=== PATIENT | male | born 1940 | race Caucasian/White ===

== ENCOUNTER 2017-02-21 16:38 | Emergency (ER) | payer MEDICARE ==
[~2017-02-21] VITALS: Ht 185.4 cm; Wt 100.0 kg
[~2017-02-21 16:38] MED LIST changes: -CIPR-9 PO; -DICY10 PO; -METR-1 PO; -NORC5TAB PO
[2017-02-21 16:41] VITALS: BP 136/60; PULSE 90; RESP 16; TEMP 98.3; O2SAT 97
--- NOTE | 2017-02-21 16:57 | PD ---
HPI Chief Complaint: GI Complaint Time Seen by Provider: 16:48 Travel History International Travel<30 days: No Contact w/Intl Traveler<30days: No Traveled to known affect area: No History of Present Illness HPI The patient is a 76-year-old male who presents to the emergency department for abdominal pain and diarrhea. The patient states his symptoms started on Thursday, February 16, 2017. The patient states he has intermittent abdominal distention and pain which is diffuse, followed by diarrhea. The patient describes the diarrhea as loose, watery, without any visible blood. He does note decreased appetite secondary to persistent diarrhea with one episode of nausea. The patient denies any current vomiting. He denies any fever, chills, or sweats. The patient was evaluated by his primary physician's [employer] on an outpatient basis and had lab work and a CT of the abdomen and pelvis that were performed today. The blood work was mostly unremarkable, however, the CT of the abdomen and pelvis did reveal enteritis. The patient was referred to the emergency department for further evaluation and management. The patient denies any travel outside the [facility]. He denies drinking well water or drinking [place]. He does have a history of previous symptoms and grew out a "cousin of Escherichia coli ". The patient was seen by the wheel press operator, Dr. Giles at that time. The patient denies any history of clostridium difficile. He denies any recent hospital admissions or recurrent antibiotic use. PFSH Past Medical History Asthma: No Autoimmune Disease: No Blood Disorders: No Cancer: No Cardiovascular Problems: No COPD: No Diabetes: No Diminished Hearing: No Endocrine: No Gastrointestinal Disorders: Yes (HAD A BACTERIAL INFECTION IN ABDOMEN) Genitourinary: No Hepatitis: No Hiatal Hernia: Yes Hypertension: No Musculoskeletal: No Neurologic: No Psychiatric: No Respiratory: No Immunizations Current: Yes Thyroid Disease: No Past Surgical History Endocrine Surgery: Yes (sinuatomy) Oral Surgery: Yes (FX JAW REPAIR WITH TITANIUM) Pacemaker: No Other Surgery: Yes Social History Alcohol Use: Yes (OCC BEER) Tobacco Use: No Substance Use: No Allergies-Medications (Allergen,Severity, Reaction): Coded Allergies: Iodinated Contrast- Oral and IV Dye (Verified Allergy, Severe, Anaphylaxis , 02/21/17) adhesive (Verified Allergy, Severe, 02/21/17) PT DENIES ALLERGY Reported Meds & Prescriptions Reported Meds & Active Scripts Active Bentyl (Dicyclomine HCl) 10 Mg Cap 10 Mg PO QID [place] (Hydrocodone-Acetaminophen) 5 Mg-325 Mg Tab 1 Tab PO Q6H PRN Cipro (Ciprofloxacin HCl) 500 Mg Tab 500 Mg PO BID 7 Days Flagyl (Metronidazole) 500 Mg Tab 500 Mg PO BID 7 Days Keflex (Cephalexin Monohydrate) 500 Mg Cap 500 Mg PO QID 7 Days Reported Zantac 75 (Ranitidine HCl) Tab 75 Mg PO DIRECTED Review of Systems Except as stated in HPI: all other systems reviewed are Neg General / Constitutional: No: Fever, Chills HENT: No: Lightheadedness Respiratory: No: Shortness of Breath Gastrointestinal: Positive: Nausea, Diarrhea, Abdominal Pain, Changes in Bowel Habits, Loss of Appetite, No: Vomiting Genitourinary: No: Decreased Urinary Output Musculoskeletal: No: Myalgias, Arthralgias Skin: Positive Other (history of vitiligo), No Rash Physical Exam Narrative GENERAL: Awake, alert, pleasant 76-year-old male who appears his stated age is in no acute respiratory distress. SKIN: Focused skin assessment warm/dry. HEAD: Atraumatic. Normocephalic. EYES: Pupils equal and round. No scleral icterus. No injection or drainage. ENT: No nasal bleeding or discharge. Slightly dry mucous membranes. NECK: Trachea midline. No JVD. CARDIOVASCULAR: Regular rate and rhythm. No murmur appreciated. Heart rate in the 80s. RESPIRATORY: No accessory muscle use. Clear to auscultation. Breath sounds equal bilaterally. GASTROINTESTINAL: Abdomen soft, mild distention, tenderness epigastric right lower quadrant. No guarding or rigidity. MUSCULOSKELETAL: No obvious deformities. No clubbing. No cyanosis. No edema. NEUROLOGICAL: Awake and alert. No obvious cranial nerve deficits. Motor grossly within normal limits. Normal speech. PSYCHIATRIC: Appropriate mood and affect; insight and judgment normal. Data Data Last Documented VS Vital Signs Date Time Temp Pulse Resp B/P (MAP) Pulse Ox O2 Delivery O2 Flow Rate FiO2 02/21/17 16:41 98.3 90 16 136/60 (85) 97 Orders Orders Iv Access Insert/Monitor (02/21/17 17:10) Ecg Monitoring (02/21/17 17:10) Oximetry (02/21/17 17:10) Morphine Inj (Morphine Inj) (02/21/17 17:15) Ondansetron Inj (Zofran Inj) (02/21/17 17:15) Ciprofloxacin 400 Mg Premix (Cipro 400 M (02/21/17 17:15) Metronidazole 500 Mg Inj (Flagyl 500 Mg (02/21/17 17:15) Sodium Chlor 0.9% 1000 Ml Inj (Ns 1000 M (02/21/17 17:10) Sodium Chloride 0.9% Flush (Ns Flush) (02/21/17 17:15) Dicyclomine (Bentyl) (02/21/17 17:15) Sodium Chlor 0.9% 1000 Ml Inj (Ns 1000 M (02/21/17 18:30) Morphine Inj (Morphine Inj) (02/21/17 18:30) MDM Medical Decision Making Medical Screen Exam Complete: Yes Emergency Medical Condition: Yes Medical Record Reviewed: Yes Interpretation(s) Outpatient lab work that was performed on 02/21/2017 reveals a complete metabolic profile with a BUN of 24, creatinine 1.3, GFR 54, fasting glucose 97, total protein 7.8, albumin 3.7, calcium 9.2, alk phosphatase 72, AST 17, ALT 37 , total bili 0.4, sodium 142, potassium 4.9, chloride 107, CO2 29.3, anion gap is 6 WBC 7.1, hemoglobin 14.3, hematocrit 44.1, platelet count 272, monocytes are elevated at 9% [facility] imaging portable large CT of the abdomen and pelvis without contrast reveals wall thickening with mild distention of 2 loops of distal ileum without involvement of the terminal ileum. This is consistent with an acute inflammatory process without obstruction. Colonic diverticulosis. Left renal cyst. 12 mm groundglass nodule within the left lung base. This may simply be postinflammatory nature, however, other etiologies cannot be excluded at this point. Current guidelines suggest a CT of the thorax in 6-12 months. Differential Diagnosis Differential diagnosis includes colitis, enteritis, gastroenteritis, food poisoning, partial small bowel obstruction, Crohn's disease, ulcerative colitis , dehydration, electrolyte abnormality. Narrative Course An IV was established and the patient was placed on cardiac telemetry monitoring and continuous pulse oximetry monitoring. I reviewed the patient's CBC, CMP, an outpatient CT of the abdomen and pelvis that was performed today. The patient was administered morphine, Zofran, Bentyl, and IV fluids. I had a discussion with the [facility] on-call for Dr. Chin. After discussion was agreed if the patient was comfortable, would be discharged home with medications and outpatient follow-up. The patient was provided a copy of the lab results and CT results that were faxed from Dr. Chin's office. Diagnosis Primary Impression: Enteritis Patient Instructions: General Instructions Additional Instructions: Medications as directed. Clear liquid diet and advance as tolerated. Return if symptoms worsen or progress. Follow-up with your primary physician. Med/Other Pt SpecificInfo: Prescription(s) given Scripts Dicyclomine (Bentyl) 10 Mg Cap 10 MG PO QID for Bowel Management, #20 CAP 0 Refills Prov: Damián Burk MD 02/21/17 Hydrocodone-Acetaminophen ([place]) 5 Mg-325 Mg Tab 1 TAB PO Q6H Y for PAIN, #15 TAB 0 Refills Prov: Damián Burk MD 02/21/17 Ciprofloxacin (Cipro) 500 Mg Tab 500 MG PO BID for Infection for 7 Days, #14 TAB 0 Refills Prov: Damián Burk MD 02/21/17 Metronidazole (Flagyl) 500 Mg Tab 500 MG PO BID for Infection for 7 Days, #14 TAB 0 Refills Prov: Damián Burk MD 02/21/17 Disposition: 01 DISCHARGE HOME Condition: Stable Damián Burk MD Feb 21, 2017 16:56
[2017-02-21] MEDS ORDERED: SODIUM CHLOR 0.9% 1000 ML INJ 1,000 ML IV SCH (17:10)
[2017-02-21] MEDS ORDERED: DICYCLOMINE HCL 10 MG CAP PO ONE (17:15)
[2017-02-21] MEDS ORDERED: metroNIDAZOLE 500 MG INJ 100 ML IV ONE (17:15)
[2017-02-21] MEDS ORDERED: ONDANSETRON HCL 4 MG/2 ML VIAL IVP ONE (17:15)
[2017-02-21] MEDS ORDERED: MORPHINE SULFATE 4 MG/ML INJ IV PUSH ONE (17:15)
[2017-02-21] MEDS ORDERED: SODIUM CHLORIDE 0.9% FLUSH 10 ML FLUSH IV FLUSH PRN (17:15)
[2017-02-21] MEDS ORDERED: CIPROFLOXACIN 400 MG PREMIX 200 ML IV ONE (17:15)
[2017-02-21] MEDS ORDERED: CIPR-9 PO (17:50)
[2017-02-21] MEDS ORDERED: METR-1 PO (17:50)
[2017-02-21] MEDS ORDERED: NORC5TAB PO (17:50)
[2017-02-21] MEDS ORDERED: DICY10 PO (17:50)
[2017-02-21] MEDS ORDERED: MORPHINE SULFATE 2 MG/ML INJ IV PUSH ONE (18:30)
[2017-02-21] MEDS ORDERED: SODIUM CHLOR 0.9% 1000 ML INJ 1,000 ML IV ONE (18:30)
[2017-02-21 19:11] VITALS: BP 140/71; PULSE 64; RESP 16; O2SAT 100
[2017-02-21 20:43] VITALS: BP 138/61; PULSE 66; RESP 16; O2SAT 99
== END 2017-02-21 20:46 | disposition home or self-care (01) ==
LOC: PHED 16:38
DX: K52.9 Noninfective gastroenteritis and colitis, unspecified (principal)
CPT/HCPCS: 96361; 96365; 96368; 96375; 96376; 99284; J0744; J2270; J2405; J7030

== ENCOUNTER → 2017-02-21 | Outpatient (CLI) | payer MEDICARE ==
[~2017-02-21] MED LIST: CEPH500C3 PO; CIPR-9 PO; DICY10 PO; METR-1 PO; NORC5TAB PO; ZANTTAB9 PO
[2017-02-21 12:41] LABS: AUTOMATED NEUTROPHIL # 4.7 TH/MM3 (1.8-7.7); BASOPHIL % 0.6 % (0.0-2.0); EOSINOPHIL # 0.2 TH/MM3 (0-0.4); EOSINOPHIL % 3.1 % (0.0-4.0); HEMATOCRIT 44.1 % (39.0-51.0); HEMOGLOBIN 14.3 GM/DL (13.0-17.0); LYMPH % 22.8 % (9.0-44.0); LYMPHOCYTE # 1.6 TH/MM3 (1.0-4.8); MEAN CELL VOLUME 94.3 FL (80.0-100.0); MEAN CORPUSCULAR HEMOGLOBIN 30.5 PG (27.0-34.0); MEAN CORPUSCULAR HGB CONC 32.3 % (32.0-36.0); MEAN PLATELET VOLUME 8.7 FL (7.0-11.0); MONOCYTE # 0.6 TH/MM3 (0-0.9); NEUT % 64.5 % (16.0-70.0); PLATELET COUNT 272 TH/MM3 (150-450); RED BLOOD COUNT 4.68 MIL/MM3 (4.50-5.90); RED CELL DISTRIBUTION WIDTH 12.5 % (11.6-17.2); WHITE BLOOD COUNT 7.1 TH/MM3 (4.0-11.0)
[2017-02-21 12:51] LABS: CHLORIDE 107 MEQ/L (98-107); SODIUM (NA) 142 MEQ/L (136-145)
[2017-02-21 12:54] LABS: ALBUMIN 3.7 GM/DL (3.4-5.0); BICARBONATE 29.3 MEQ/L (21.0-32.0); CALCIUM 9.2 MG/DL (8.5-10.1)
[2017-02-21 12:55] LABS: BLOOD UREA NITROGEN 24 MG/DL (7-18); GLUCOSE,FASTING 97 MG/DL (74-99)
[2017-02-21 12:58] LABS: ALT (GPT) 37 U/L (12-78); AST (GOT) 17 U/L (15-37); GLOMERULAR FILTRATION RATE 54 ML/MIN (>89)
[2017-02-21 12:59] LABS: TOTAL BILIRUBIN ADULT 0.4 MG/DL (0.2-1.0); TOTAL PROTEIN 7.8 GM/DL (6.4-8.2)
[2017-02-21 13:00] LABS: ALKALINE PHOSPHATASE 72 U/L (45-117)
== END ==
LOC: PLAB 12:17
PROVIDERS: ATTEND Nurse Practitioner Family
DX: R10.31 Right lower quadrant pain (principal); R19.7 Diarrhea, unspecified; Z87.19 Personal history of other diseases of the digestive system
CPT/HCPCS: 36415; 80053; 85025